=== PATIENT | female | born 1950 | race Caucasian/White ===

== ENCOUNTER → 2018-02-17 | Outpatient (CLI) | payer MEDICARE ==
[~2018-02-17] MED LIST: CYCL5TAB PO; ESTR1VAG VG; GABA100C PO; LEVO25TA2 PO; MELO15TA24 PO
[2018-02-17 13:53] LABS: BASOPHILS # (AUTO) 0.04 x10^3/uL (0-0.1); BASOPHILS % (AUTO) 1 % (0-1); EOSINOPHILS # (AUTO) 0.34 x10^3/uL (0-0.4); EOSINOPHILS % (AUTO) 5 % (1-7); LYMPHOCYTES # (AUTO) 1.91 x10^3/uL (1-3.4); LYMPHOCYTES % (AUTO) 30 % (22-44); MD NO; MEAN CORPUSCULAR HEMOGLOBIN 29.6 pg (27.0-34.8); MEAN CORPUSCULAR HGB CONC 33.3 g/dL (32.4-35.8); MEAN CORPUSCULAR VOLUME 88.9 fL (80-100); MEAN PLATELET VOLUME 8.2 fL (7.4-10.4); MONOCYTES # (AUTO) 0.51 x10^3/uL (0.2-0.8); MONOCYTES % (AUTO) 8 % (2-9); NEUTROPHILS # (AUTO) 3.67 x10^3/uL (1.8-6.8); NEUTROPHILS % (AUTO) 57 % (42-75); PLATELET COUNT 310 x10^3/uL (130-400); RED BLOOD COUNT 4.93 x10^6/uL (3.82-5.3); RED CELL DISTRIBUTION WIDTH 13.6 % (9.6-15.2)
[2018-02-17 14:00] LABS: ANION GAP 3 mmol/L (5-15); CALCIUM 9.3 mg/dL (8.5-10.1); CHLORIDE 106 mmol/L (98-107)
[2018-02-17 14:06] LABS: INTERNATIONAL NORMALIZED RATIO 0.96 (0.93-1.1)
[2018-02-17 14:07] LABS: MICROSCOPIC AUTO
[2018-02-17 14:39] LABS: CULTURE INDICATED? NO
== END | disposition home or self-care (01) ==
LOC: STAR 12:48 → MERGE 13:00
PROVIDERS: ATTEND Neurological Surgery
DX: Z01.818 Encounter for other preprocedural examination (principal); M51.26 Other intervertebral disc displacement, lumbar region
CPT/HCPCS: 36415; 71046; 80048; 81001; 85025; 85610; 85730; 93005

== ENCOUNTER 2018-03-03 05:36 | Observation (INO) | payer MEDICARE ==
[~2018-03-03] VITALS: Ht 181.6 cm; Wt 103.8 kg
[2018-03-03] MEDS ORDERED: LACTATED RINGERS 1,000 ML IV SCH (06:01)
[2018-03-03 06:05] VITALS: BP 152/90
[2018-03-03] MEDS ORDERED: BUPIVACAINE/PF-EPI 0.5% 1:200K ONE ×2 (06:57→09:48)
[2018-03-03] MEDS ORDERED: THROMBIN 5,000 UNIT VIAL TP ONE (06:58)
[2018-03-03] MEDS ORDERED: BACITRACIN 50,000 UNIT ONE (06:58)
[2018-03-03] MEDS ORDERED: GABAPENTIN 300 MG CAPSULE ONE (07:27)
[2018-03-03] MEDS ORDERED: FENTANYL PF 250 MCG/5ML ONE (07:28)
[2018-03-03] MEDS ORDERED: MIDAZOLAM 1 MG/ML, 2ML ONE (07:28)
[2018-03-03] MEDS ORDERED: ACETAMINOPHEN 500 MG TABLET PO ONE (07:30)
[2018-03-03] MEDS ORDERED: FAMOTIDINE 20 MG TABLET PO ONE (07:30)
[2018-03-03] MEDS ORDERED: GABAPENTIN 300 MG CAPSULE PO ONE (07:30)
[2018-03-03] MEDS ORDERED: ONDANSETRON ODT 8 MG PO PRN (08:30)
[2018-03-03] MEDS ORDERED: PROMETHAZINE 25 MG/ML, 1ML IV PRN (08:30)
[2018-03-03] MEDS ORDERED: MEPERIDINE/PF 25MG/0.5ML IVPush PRN (08:30)
[2018-03-03] MEDS ORDERED: ONDANSETRON 2MG/ML, 2ML IV PRN (08:30)
[2018-03-03] MEDS ORDERED: CEFAZOLIN 1,000 MG ONE (09:01)
[2018-03-03] MEDS ORDERED: EPINEPHRINE 1 MG/ML, 1ML ONE (09:01)
[2018-03-03] MEDS ORDERED: PROPOFOL 10 MG/ML, 20ML ONE (09:01)
[2018-03-03] MEDS ORDERED: PHENYLEPHRINE 10 MG/ML ONE (09:01)
[2018-03-03] MEDS ORDERED: ONDANSETRON 2MG/ML, 2ML ONE (09:01)
[2018-03-03] MEDS ORDERED: DEXAMETHASONE 4 MG/ML, 1ML ONE (09:01)
[2018-03-03] MEDS ORDERED: SUCCINYLCHOLINE 20 MG/ML, 10ML ONE (09:01)
[2018-03-03] MEDS ORDERED: ROCURONIUM 10MG/ML,5ML ONE (09:01)
[2018-03-03] MEDS ORDERED: NEOSTIGMINE 1 MG/ML, 10ML ONE (09:01)
[2018-03-03] MEDS ORDERED: EPHEDRINE 50 MG/ML, 1ML ONE (09:01)
[2018-03-03] MEDS ORDERED: GLYCOPYRROLATE 0.2MG/1ML, 5ML ONE (09:01)
[2018-03-03] MEDS ORDERED: FENTANYL PF 100 MCG/2ML ONE (09:59)
[2018-03-03] MEDS ORDERED: MORPHINE SULFATE 4 MG/ML, 1ML ONE (09:59)
[2018-03-03] MEDS ORDERED: MEPERIDINE/PF 100 MG/ML IM PRN (10:00)
[2018-03-03] MEDS ORDERED: DIPHENHYDRAMINE 25 MG CAPSULE PO PRN (10:00)
[2018-03-03] MEDS ORDERED: SENNA/DOCUSATE TABLET PO PRN (10:00)
[2018-03-03] MEDS ORDERED: ONDANSETRON 2MG/ML, 2ML IVPush PRN (10:00)
[2018-03-03] MEDS ORDERED: HYDROmorphone 2MG TABLET ONE (10:00)
[2018-03-03] MEDS ORDERED: ACETAMINOPHEN 325 MG TABLET PO PRN (10:00)
[2018-03-03] MEDS ORDERED: PROMETHAZINE 25 MG/ML, 1ML IM PRN (10:00)
[2018-03-03] MEDS ORDERED: DIPHENHYDRAMINE 50 MG/ML, 1ML IVPush PRN (10:00)
[2018-03-03] MEDS ORDERED: MAGNESIUM HYDROXIDE 8%, 30ML UDC PO PRN (10:00)
[2018-03-03] MEDS ORDERED: PHARMACY MAY ADJ FOR RENAL FX MC PRN (10:00)
[2018-03-03] MEDS ORDERED: BISACODYL 10 MG SUPP PR PRN (10:00)
[2018-03-03] MEDS: HYDROmorphone 2MG TABLET PO PRN ×3 (10:05→19:54)
[2018-03-03] MEDS: FENTANYL PF 100 MCG/2ML IV PRN ×2 (10:05→10:12)
[2018-03-03] MEDS: MORPHINE SULFATE 4 MG/ML, 1ML IVPush PRN ×2 (10:22→10:28)
[2018-03-03] MEDS: NS + 20MEQ KCL 1,000 ML IV SCH ×2 (12:21→22:51)
[2018-03-03 12:36] VITALS: BP 142/80
[2018-03-03] MEDS: CEFAZOLIN PMX 1GM/50ML 50 ML IVPB SCH (17:29)
[2018-03-03] MEDS: CYCLOBENZAPRINE 10 MG TABLET PO PRN ×2 (19:54→22:00)
[2018-03-03] MEDS: SODIUM CHLORIDE FLUSH 10ML SYR IVF SCH (19:55)
[2018-03-03 20:01] VITALS: BP 131/75
[2018-03-04 00:18] VITALS: BP 121/70
[2018-03-04] MEDS: HYDROmorphone 2MG TABLET PO PRN ×5 (00:34→09:25)
[2018-03-04] MEDS: CYCLOBENZAPRINE 10 MG TABLET PO PRN ×2 (00:35→06:38)
[2018-03-04] MEDS: CEFAZOLIN PMX 1GM/50ML 50 ML IVPB SCH (01:14)
[2018-03-04 03:24] VITALS: BP 128/66
[2018-03-04] MEDS ORDERED: LEVOTHYROXINE 25 MCG TABLET PO SCH (06:00)
[2018-03-04 06:50] VITALS: BP 90/56
[2018-03-04] MEDS: SODIUM CHLORIDE FLUSH 10ML SYR IVF SCH (07:54)
[2018-03-04] MEDS: NS + 20MEQ KCL 1,000 ML IV SCH (07:54)
[2018-03-04] MEDS ORDERED: DEXAMETHASONE 4 MG/ML, 1ML IVPush ONE (08:30)
[2018-03-04] MEDS ORDERED: GABAPENTIN 100 MG CAPSULE PO SCH (09:00)
[2018-03-04] MEDS ORDERED: ACET325T26 PO (09:43)
[2018-03-04] MEDS ORDERED: HYDR2TAB29 PO (09:45)
[2018-03-04 09:46] VITALS: BP 123/73
[2018-03-04] MEDS ORDERED: CYCL-259 PO (09:47)
[2018-03-04] MEDS ORDERED: METH4TAB2 PO (09:49)
[2018-03-04] MEDS ORDERED: POLY17PO5 PO (09:51)
== END 2018-03-04 11:30 | disposition home or self-care (01) ==
LOC: OUT 05:36 → MERGE 07:30 → ORIP 09:41 → 4NOR 10:49 → DCLOUNGE 03-04 11:10
PROVIDERS: ADMIT Neurological Surgery; ATTEND Neurological Surgery
DX: M51.16 Intervertebral disc disorders with radiculopathy, lumbar region (principal); E78.00 Pure hypercholesterolemia, unspecified; E03.9 Hypothyroidism, unspecified; K21.9 Gastro-esophageal reflux disease without esophagitis; R07.9 Chest pain, unspecified; R06.00 Dyspnea, unspecified; R94.31 Abnormal electrocardiogram [ECG] [EKG]; R00.2 Palpitations
CPT/HCPCS: 63047; 72100; 96365; 96375; G0378; J0171; J0330; J0690; J1100; J2250; J2370; J2405; J2704; J2710; J3010; J3480; J3490; J7120

== ENCOUNTER → 2019-07-26 | Outpatient (CLI) | payer MEDICARE ==
[~2019-07-26] MED LIST changes: +ACET325T26 PO; +CYCL-259 PO; +HYDR2TAB29 PO; +METH4TAB2 PO; +POLY17PO5 PO
== END | disposition home or self-care (01) ==
LOC: CFH 09:22
PROVIDERS: ATTEND Obstetrics & Gynecology
DX: Z12.31 Encounter for screening mammogram for malignant neoplasm of breast (principal)
CPT/HCPCS: 77063; 77067